=== PATIENT | male | born 1965 | race Caucasian/White ===

== ENCOUNTER 2021-04-26 10:17 | Inpatient (IN) | payer BC ==
[~2021-04-26] VITALS: Ht 180.3 cm; Wt 58.8 kg
[~2021-04-26 10:17] MED LIST: AVONEX30 MCG/0.5 IM; IBUPROFEN200 MG PO
[2021-04-26] MEDS ORDERED: AMOXICILLIN500 MG PO (19:37)
--- NOTE | 2021-04-26 20:05 | NUR ---
INITIAL ASSESSMENT COMPLETED AT THIS TIME. PT SKIN IS FLUSHED. TEMP OF 101.3. HEART RATE IN THE 120S AT REST, UP INTO THE 130S WITH ANY ACTIVITY. DENIES PAIN, ADOMINAL PAIN OR NAUSEA. PTS LUNGS SOUND CLEAR, BREATHING EVEN AND UNLABORED. BOWEL TONES ACTIVE IN ALL QUADRANTS. DISCUSSED PLAN OF CARE FOR EVENING. PT HAD IV MAGNESIUM AND IV FLUIDS INFUSING. TYLENOL GIVEN FOR FEVER. CALL LIGHT WITHIN REACH. WILL CONTINEU TO CLOSELY MONITOR.
--- NOTE | 2021-04-26 21:57 | NUR ---
PT UP TO BSC. HEART RATE UP TO 130S AND RESPIRATIONS UP INTO THE 30S WITH ACTIVITY. PT UNSTEADY ON FEET. ONE PERSON ASSIST REQUIRED. PT NOW BACK IN BED, HEART RATE 110-115. IV FLUIDS AND ABX CONTINUE TO INFUSE. WILL CLOSELY MONITOR.
--- NOTE | 2021-04-26 23:12 | NUR ---
pt up to use BSC. assessment completed at this time. Pt had another liquid bowel movement. heart rate has trended down to 110, up to 120 with activity. pt denies pain or discomfort. call light within reach. denies further needs at this time.
--- NOTE | 2021-04-27 01:29 | NUR ---
PT RESTING. HEART RATE 100-110 AT REST. BREATHING EVEN AND UNLABORED. RR=20. IV FLUIDS CONTINUE TO INFUSE. CALL LIGHT WITHIN REACH. WILL CONTINUE TO MONITOR.
--- NOTE | 2021-04-27 02:15 | NUR ---
ASSISTED PATIENT TO BSC. PATIENT HAD SMALL LIQUID BM. ASSISTED WITH CAROLYN CARE AND NEW ATTENDS. PATIENT BACK IN BED. WARM BLANKET PROVIDED.
--- NOTE | 2021-04-27 03:20 | NUR ---
PT UP TO USE BSC, ASSESSMENT COMPLETED AT THIS TIME. PT REAMINS TACHYCARDIC, HR BETWEEN 110-118 AT REST. PT HAD SMALL LIQUID BM, HAS NOT VOIDED. PLAN ESTABLISHED TO STRAIGHT CATH AFTER MORNING LABS. CALL LIGHT WITHIN REACH. IV FLUIDS INFUSING. WILL CONTINUE TO MONITOR.
--- NOTE | 2021-04-27 04:30 | NUR ---
PT UP TO BSC TO VOID AND BACK TO BED. CALL LIGHT WITHIN REACH. WARM BLANKETS PROVIDED. DENIES FURTHER NEEDS.
--- NOTE | 2021-04-27 06:19 | NUR ---
PT UP TO BSC AFTER BEING INCONTIENT OF STOOL. PT HAD 200 MLS OF URINE OUT WELL. HEART RATE AT 120 BPM WITH ACTIVITY. BACK IN BED. IV FLUIDS AND ABX NOW INFUSING.
--- NOTE | 2021-04-27 07:30 | NUR ---
RECEIVED REPORT AT 0700. PT WAS AWAKE IN BED AT THAT TIME.
--- NOTE | 2021-04-27 08:00 | NUR ---
Spoke with pt, I will call his room. Attempted to call and 0 answer.
--- NOTE | 2021-04-27 08:30 | NUR ---
HR <100 AT REST, WITH ACTIVITY UP TO 120. PT HAS HAD LIQUID BM'X2 SINCE 0700. PT HAS HYPERACTIVE BOWEL TONES PRESENT. PT DENIES ABD PAIN/ CRAMPING. BALDDER SCAN WAS DONE AND IT SHOWED 507 MLS PRESENT. WILL TALK TO MD ABOUT STRAIGHT CATH ORDER. PT HAS SLIGHT BILATERAL TRACE PITTING EDEMA PRESENT. ASSESSMENT OTHERWISE WAS WDL.
--- NOTE | 2021-04-27 09:29 | NUR ---
MED REC COMPLETED BY PHARMACY
--- NOTE | 2021-04-27 10:00 | NUR ---
STRAIGHT CATH WAS DONE BY PT. EDUCATION ON STERIL TECHNIQUE WAS ALSO TALKED ABOUT. PT WILL NEED SOME MORE EDUACTION REGARDING THIS MATTER... 600MLS OF MARKIE COLORED URINE WAS NOTED.
--- NOTE | 2021-04-27 11:48 | NUR ---
ANSWERED CALL LIGHT, PATIENT REQUESTING ASSISTANCE TO BSC. SMALL LIQUID STOOL. GOWN AND DRAW SHEET CHANGED. PATIENT BACK TO BED, CALL LIGHT IN EASY REACH
--- NOTE | 2021-04-27 12:00 | NUR ---
PT OVERALL IS STRONGER NOW THAN AT START OF SHIFT. STILL HAS LIQUID BM'S. OVERALL THOUGH SECCOND ASSESSMENT HAD NO NEW CONCERNS NOTED. HR <110 AT REST.
--- NOTE | 2021-04-27 12:16 | NUR ---
PT ALERT, ORIENTED AND STAFF IN CHARTING. PT WOULD LIKE TO HAVE FR NASH COME AND VISIT FOLLOWING MASS. WILL LET FR. NASH KNOW. GAVE DAVID, WILL FOLLOW
--- NOTE | 2021-04-27 14:00 | NUR ---
PT IN ROOM. NO NEW CONCERNS NOTED AT THIS TIME.
--- NOTE | 2021-04-27 14:02 | NUR ---
CALL LIGHT ANSWERED. PATIENT REQUESTING ASSISTANCE TO BSC. 1PA, AND BACK TO BED. FRESH ICE WATER PROVIDED. CALL LIGHT IN EASY REACH.
--- NOTE | 2021-04-27 16:00 | NUR ---
PT CURRENTLY TAKING A SHOWER WITH RN PRESENT.
--- NOTE | 2021-04-27 16:30 | NUR ---
ABD SOUNDS STILL HYPERACTIVE, ABD SEEMS A BIT DISTENDED AT THIS TIME. PT DENIES PAIN. NO NEW CONCERNS WERE NOTED. HR NOW <100.
--- NOTE | 2021-04-27 16:46 | NUR ---
Attempted to call pt. No answer. Went to room and pt is in the shower.
--- NOTE | 2021-04-27 18:30 | NUR ---
PT TO TRANSFER TO ROOM 124. NO NEW CONCERNS NOTED AT THIS TIME.
--- NOTE | 2021-04-27 18:53 | NUR ---
REPORT RECEIVED FROM CCU RN AND PT. ARRIVED VIA BED. HR 111. PT. IS ALERT AND ORIENTED. AMBULATED WITH SBA TO BSC TO VOID. LEFT RESTING WITH CALL LIGHT IN REACH.
--- NOTE | 2021-04-27 20:05 | NUR ---
PATIENT UP TO THE BEDSIDE COMMODE AND PATIENT HAD A SMALL LIQUID STOOL AND BACK TO BED. NO OTHER CARE NEEDS AT THIS TIME. CALL LIGHT IS IN REACH.
--- NOTE | 2021-04-27 22:52 | NUR ---
PATIENT'S BLADDER SCAN WAS 549MLS. PATIENT WAS THEN STRAIGHT CATHED BY THIS RN FOR 700MLS. PATIENT FEELING MUCH BETTER. FRESH ICE WATER GIVEN WITH PM MEDS. PATIENT HAS NO OTHER CARE NEEDS AT THIS TIME. CALL LIGHT IS IN REACH.
--- NOTE | 2021-04-28 00:25 | NUR ---
PATIENT'S IV PUMP WAS BEEPING AND NEW IV HUNG. PATIENT SAID HE HAD BEEN ABLE TO SLEEP FOR AWHILE AFTER GETTING HIS STRAIGHT CATH DONE AND IS GOING TO TRY AND GO BACK TO SLEEP. PATIENT HAS NO FURTHER NEEDS AT THIS TIME. CALL LIGHT IS IN REACH.
--- NOTE | 2021-04-28 02:33 | NUR ---
PATIENT RESTING QUIETLY ON HIS LEFT SIDE, EYES CLOSED, RESPIRATIONS ARE REGULAR AND EVEN, AND CALL LIGHT IS IN REACH.
--- NOTE | 2021-04-28 03:42 | NUR ---
PT WAS INCONT OF BM, WOKE SELF FROM SLEEP, PT CLEANED UP, NEW CHUX IN PLACE, NEW ATTENDS, PT VOIDING SOME IN BSC, BACK TO BED, NO FURTHER NEEDS AT THIS TIME
--- NOTE | 2021-04-28 05:43 | NUR ---
PATIENT HAS HAD MULTIPLE LOOSE/WATERY STOOLS. PATIENT'S VS ARE STABLE. PATIENT IS VERY ANXIOUS TO TALK TO THE MD THIS MORNING AND GO HOME IF POSSIBLE. PATIENT HAS NO OTHER NEEDS AT THIS TIME. CALL LIGHT IS IN REACH.
--- NOTE | 2021-04-28 08:15 | NUR ---
patient resting in the bed. call light with in reach. warm washcloth offered, call light within reach. no further needs at this time.
--- NOTE | 2021-04-28 09:25 | NUR ---
IN TO SEE PT MEDICATIONS AND AM ASSEMSSMENT DUE. PT DENIES PAIN AT THIS TIME. PT UP AMBULATING HALLWAY THIS AM WITH PHYSICAL THERAPY. PT HAS RETURNED TO ROOM, SITTING UP IN BED WATHCNIGN TV. NO TOHER CONCENRS OR REQUEST AT THIS ITME. CALL LIGHT IN REACH.
--- NOTE | 2021-04-28 12:43 | NUR ---
IN TO CHECK ON PT. PT SITTING ON SIDE OF BED SHAVING WITH ELECTRIC RAZOR. PT ALERT AND OREITNED. MEDICATION ADMINISTERED. PT DENIES NAUSEA AND DIARRHEA AT THSI TIME. PT STATES "I HAVE NOT HAD ANY DIARRHEA TODAY." PT REPORTS HE HAD ALL HIS LUNCH THIS AFTERNOON. PT DENIES PAIN AND DISCOMFORT AT THISITME. PT LAYING IN BED WITH HOB AT 33 DEGREES WATCHING TV. NOOTHER CONCERNS ORT REQUESTS AT THIS TIME. BED RRAILS X 2 UP. CALL LIGHT IN REACH.
--- NOTE | 2021-04-28 13:17 | NUR ---
IN TO ANSWER PT CALL LIGHT. ASSISTED PT TO BATHROOM. PT ABLE TO VOID INDEPENDENTLY. ASSISTED PT BACK TO BED. PT LAYING IN BED AT 33 DEGRESS WATCHING TV. NO OTHER CONCERNS OR REQUESTS. CALL LIGHT IN REACH.
--- NOTE | 2021-04-28 16:05 | NUR ---
PT FINSHED WITH SHOWER. PT BACK ON CONTINUOUS IVF AT THIS TIME. PT LAYING IN BED ON BACK AT 33 DEGRESS WATCHING TV. DENIES PAIN. DENIES NAUSEA. DENIES DIARRHEA, " THE WAY IT WAS COMING OUT I DIDDN'T THINK IT WAS EVER GOING TO STOP." NO OTHER CONCERNS OR REQUAETS AT THIS TIME. BED RAILS UP X 2. CALL LIGHT IN REACH.
--- NOTE | 2021-04-28 17:45 | NUR ---
PATIENT HAD A FORMED MEDIUM STOOL. PATIENT VOIDED, MISSED HAT. BLADDERS SCAN POST VOID WAS 384ML. PATIENT REPORTS HE USUALLY SELF-CATHETERISES AT HOME "MAYBE EVERY THREE DAYS". PATIENT REPORTS HE CANNOT AFFORD HIS CATHETER SUPPLIES AT HOME TO REMAIN STERILE WITH SELF CATH CARES. ENCOURAGED PATIENT TO CONTINUE TO ATTEMPT TO VOID FREQUENTLY.
--- NOTE | 2021-04-28 19:30 | NUR ---
PT UP TO VOID, SBA WITH IV POLE, JUICE AND JELLO PROVIDED AT THIS TIME, NO FURTHER NEEDS
--- NOTE | 2021-04-28 20:20 | NUR ---
PT ASSISTED WITH IV POLE TO TOILET, INDPENDENTLY BACK TO BED, TOLERATED ACTIVITY WELL, NO FURTHER NEEDS AT THIS TIME
--- NOTE | 2021-04-28 21:01 | NUR ---
BRIEFS PROVIDED PER pt REQUEST. pt INCONTINENT OF URINE, DRY BRIEFS IN PLACE. pt ASSISTED BACK TO BED, NO FURTHER NEEDS. CALL LIGHT IN REACH.
--- NOTE | 2021-04-28 21:45 | NUR ---
UP TO THE TOILET AND BACK TO BED
--- NOTE | 2021-04-28 22:03 | NUR ---
PATIENT VS STABLE AND ASSESSMENT COMPLETE. PATIENT HAD 458MLS IN HIS BLADDER PER BLADDER SCAN. PATIENT STRAIGHT CATHED BY THIS RN FOR 625MLS AND PATIENT TOLERATED THIS WELL. PM MEDS GIVEN AND ROOM LIGHTS TURNED DOWN SO PATIENT CAN GO TO SLEEP. CALL LIGHT IS IN REACH.
--- NOTE | 2021-04-29 00:10 | NUR ---
PATIENT RESTING QUIETLY ON HIS LEFT SIDE, RESPIRATIONS ARE REGULAR AND EVEN, EYES CLOSED, AND CALL LIGHT IS IN REACH. NO CARE NEEDS NOTED AT THIS TIME.
--- NOTE | 2021-04-29 01:11 | NUR ---
ASSISTED PT TO RESTROOM AND BACK TO BED. HE WAS UNABLE TO VOID. PT DENIES FURTHER NEEDS AT THIS TIME. CALL LIGHT IS CLOSE.
--- NOTE | 2021-04-29 02:50 | NUR ---
ASSISTED PT TO TOILET, BACK TO BED, NO FURTHER NEEDS
--- NOTE | 2021-04-29 03:22 | NUR ---
PATIENT RESTING QUIETLY ON HIS LEF SIDE, RESPIRATIONS ARE REGULAR AND EVEN, EYES CLOSED, AND CALL LIGHT IS IN REACH.
--- NOTE | 2021-04-29 03:40 | NUR ---
IN TO ASSIST PT TO THE TOILET, SMALL SOFT BM NOTED, NO FURTHER NEEDS
--- NOTE | 2021-04-29 05:17 | NUR ---
PATIENT CALLED AND NEEDED TO HAVE A BM. 1PSBA TO THE RESTROOM. INCONTINENT STOOL AND URINE. ATTENDS CHANGED BY THIS RN. PATIENT BACK TO BED AND RIGHT BACK TO THE BATHROOM FOR A SECOND BM WHICH WAS A FALSE ALARM. PATIENT HAD NO OTHER NEEDS AT THIS TIME. VS STABLE AND ASSESMENT COMPLETE.
--- NOTE | 2021-04-29 06:23 | NUR ---
CALL LIGHT ANSWERED, pt UP TO VOID AND BACK TO BED SBA. INCONTINENT OF URINE, DRY ATTENDS IN PLACE. pt DENIES FURTHER NEEDS, CALL LIGHT IN REACH.
--- NOTE | 2021-04-29 06:55 | NUR ---
PT UP TO THE TOILET, BM AND V.SMALL VOID, NEW ATTENDS IN PLACE, BACK TO BED, NO FURTHER NEEDS
[2021-04-29] MEDS ORDERED: METOPROLOL TART25 MG PO (08:57)
[2021-04-29] MEDS ORDERED: VANCOMYCIN HCL125 MG PO (08:57)
--- NOTE | 2021-04-29 09:39 | NUR ---
TOOK PT TO RESTROOM AND THEN REMOVED HIS IV'S.
== END 2021-04-29 10:25 | disposition home or self-care (01) | DRG 872 ==
LOC: ED 10:17 → CCU 18:39 → MS 04-27 18:50
PROVIDERS: ADMIT Student in an Organized Health Care Education/Training Program; ATTEND Student in an Organized Health Care Education/Training Program
DX: A41.89 Other specified sepsis (principal); A04.72 Enterocolitis due to Clostridium difficile, not specified as recurrent; N17.9 Acute kidney failure, unspecified; N39.0 Urinary tract infection, site not specified; E87.1 Hypo-osmolality and hyponatremia; Z20.822 Contact with and (suspected) exposure to COVID-19; R65.20 Severe sepsis without septic shock; G35 Multiple sclerosis; E83.42 Hypomagnesemia; E87.6 Hypokalemia; E80.6 Other disorders of bilirubin metabolism; Z79.899 Other long term (current) drug therapy
CPT/HCPCS: 80048; 80053; 81001; 83605; 83690; 83735; 85007; 85025; 87040; 87088; 87493; 96365; 96367; 96368; 96375; 97112; 97116; 97161; 97165; 99284-25; C9803; J0696; J1650; J2405; J3475; J7030; J7121; U0003

== ENCOUNTER 2025-05-29 20:49 | Emergency (ER) | payer MEDICARE, OTHER ==
[~2025-05-29] VITALS: Ht 180.3 cm; Wt 61.5 kg
--- OUTSIDE RECORDS SUMMARY | ~2025-05-29 | XMS | Continuity of Care Document ---
Demographics + + + | Address | [address] | | | [place] [address] | + + + | Preferred Language | Unknown | + + + | Marital Status | | + + + | Faith Affiliation | Unknown | + + + | Race | White | + + + | Ethnic Group | Not or | + + + Author + + + | Author | [facility] | + + + | Organization | [facility] | + + + | Address | [address] | | | [place] [address] | + + + | Phone | | + + + Care Team Providers + + + + | Care Portable Canteen Operator Name | Role | Phone | + + + + Unavailable | Unavailable | + + + + Allergies No information. Encounters No information. Functional Status No information. Immunizations No information. Medications + + + + | date | description | facility | + + + + | (no date) | NITROFURANTOIN | [facility] | | | MACROCRYSTAL | [facility] | + + + + | (no date) | Ocrelizumab | [facility] | | | | [facility] | + + + + | (no date) | BACLOFEN | [facility] | | | | [facility] | + + + + | (no date) | IBUPROFEN | [facility] | | | | [facility] | + + + + | (no date) | DALFAMPRIDINE | [facility] | | | | [facility] | + + + + Problems No information. Procedures No information. Results/Labs No information. Social History + + + + | date | description | facility | + + + + | (no date) | Unknown if ever smoked | [facility] | | | | [facility] | + + + + Vital Signs No information."
[~2025-05-29 20:49] MED LIST changes: +AMOXICILLIN500 MG PO; +AMPYRA10 MG PO; +BACLOFEN10 MG PO; +IBUPROFEN200 MG; +METOPROLOL TART25 MG PO; +NITROFURANTOIN100 MG PO; +OCREVUS300 MG/10 IV; +VANCOMYCIN HCL125 MG PO
[2025-05-29] MEDS ORDERED: OXYBUTYNIN CHLOR5 MG (20:59)
[2025-05-29 21:22] LABS: BASOPHILS 0.3 % (0.2-1.2); EOSINOPHILS 0.1 % (0.8-7.0); LYMPHOCYTES 13.4 % (21.8-53.1); MCH 29.4 PG (25.7-32.2); MCHC 33.8 g/dL (32.3-36.5); MCV 86.9 fL (79.0-92.2); MONOCYTES 4.8 % (5.3-12.2); NEUTROPHILS 81.3 % (34.0-67.9); RBC 4.29 M/uL (4.63-6.08)
[2025-05-29 21:34] LABS: ALT (SGPT) 26.0 U/L (14-59); AST (SGOT) 22.0 U/L (15-37); GLOMERULAR FILTRATION RATE,EST 76.0 mL/min (>60); PROTEIN, TOTAL 6.5 g/dL (6.4-8.2); UREA NITROGEN 22.0 mg/dL (7-18)
[2025-05-29] MEDS ORDERED: MAGNESIUM SULFATE 4 GM/100 ML BAG IV ONE (22:00)
[2025-05-29] MEDS ORDERED: MAGNESIUM OXID400 M1 PO (22:02)
[2025-05-29 22:33] LABS: BLOOD/HGB, URINE MODERATE (Negative); KETONE, URINE TRACE (Negative); LEUK ESTERASE, URINE TRACE (negative); NITRITE, URINE NEGATIVE (negative)
[2025-05-29 22:48] LABS: BACTERIA, URINE 2+ /hpf (negative); CASTS, URINE NONE SEEN \\lpf; CRYSTALS, URINE NONE SEEN (0-1+); EPITHELIAL CELLS, URINE SQUAMOUS 1+ /lpf (0-1+); REFLEX CULTURE, URINE Yes (No)
[2025-05-29] MEDS ORDERED: MACROBID 100 M100 MG PO (23:07)
[2025-05-29] MEDS ORDERED: ONDANSETRON 4 MG HOME.PACK SL ONE (23:15)
[2025-05-29] MEDS ORDERED: NITROFURANTOIN MONOHYD MACROCR 100 MG HOME.PACK PO ONE (23:15)
[2025-05-29] MEDS ORDERED: PROCHLORPERAZINE EDISYLATE 10 MG/2 ML VIAL IV ONE (23:15)
[2025-05-29] MEDS ORDERED: CEFDINIR300 MG PO (23:35)
[2025-05-29] MEDS ORDERED: CEFDINIR 300 MG HOME.PACK PO ONE (23:45)
[2025-05-30 00:20] VITALS: BP 148/78
== END 2025-05-30 00:39 | disposition home or self-care (01) ==
LOC: ED 20:49
PROVIDERS: Family Medicine
DX: E83.42 Hypomagnesemia (principal); N39.0 Urinary tract infection, site not specified; Z79.899 Other long term (current) drug therapy; Z88.0 Allergy status to penicillin
CPT/HCPCS: 36415; 70450; 80053; 81001; 83735; 85025; 96374; 96375; 99284-25; A9270; J0780; J2405; J3475